=== PATIENT | male | born 1995 | race Two or more races ===

== ENCOUNTER 2019-05-06 11:17 | Emergency (ER) | payer OTHER ==
[~2019-05-06] VITALS: Ht 170.2 cm; Wt 106.6 kg
[2019-05-06] MEDS ORDERED: KETOROLAC TROME10 MG PO (12:00)
[2019-05-06] MEDS ORDERED: OFLOXACIN5 ML OTIC (12:00)
[2019-05-06] MEDS ORDERED: MUPIROCIN22 GM TOP (12:00)
== END 2019-05-06 15:31 | disposition home or self-care (01) ==
LOC: EMR PED 11:17 → ER 11:17 → EMR PED 11:49
DX: H92.02 Otalgia, left ear (principal)

== ENCOUNTER 2019-05-07 10:52 | Emergency (ER) | payer OTHER ==
[~2019-05-07] VITALS: Ht 170.2 cm; Wt 106.6 kg
[~2019-05-07 10:52] MED LIST: KETOROLAC TROME10 MG PO; MUPIROCIN22 GM TOP; OFLOXACIN5 ML OTIC
== END 2019-05-07 13:35 | disposition home or self-care (01) ==
LOC: ER 10:52
DX: H60.8X2 Other otitis externa, left ear (principal)